=== PATIENT | female | born 1955 | race Caucasian/White ===

== ENCOUNTER 2017-01-15 00:37 | Emergency (ER) | payer MEDICARE ==
--- NOTE | ~2017-01-15 | ER ---
PATIENT'S NAME: MARK ENGLE [facility] AGE: 61 Y [address] ROOM: [place] [address] LOCATION: ED ADMIT DATE: 01/15/2017 ER/Outpatient Report DISCHARGE DATE: 01/15/2017 FAMILY PHYSICIAN: Kia Blanca MD ATTENDING PHYSICIAN: Hardik Quinn Admission date and time documented in the medical record. I saw the patient at 0050 hours. CHIEF COMPLAINT: Left low back pain. HISTORY OF PRESENT ILLNESS: This patient is a 61-year-old female, brought to the emergency room by Paramedics via ambulance for evaluation. The patient has had pain in her left lower back today. Stiff and has muscle spasm. The patient was given fentanyl en-route. Denies any fall or trauma. No recent coughs, colds, flus, fever, chills, or sweats. No chest pain or shortness of breath. No abdominal pain, nausea, vomiting, or diarrhea. No urinary frequency, urgency, or dysuria. Other than the back, no other joint or muscle swelling, redness, or pain. No skin eruptions or rash. HOME MEDICATIONS: See attached medication list. ALLERGIES: SULFA AND NSAIDS. SOCIAL HISTORY: Nonsmoker and nondrinker. REVIEW OF SYSTEMS: All systems reviewed by me are negative with exception of those discussed in the history of present illness. PHYSICAL EXAMINATION: VITAL SIGNS: Temperature 98.5 tympanic, pulse 85, respirations 16, blood pressure 133/75, and O2 saturation on room air is 97%. LUNGS: Clear. HEART: Regular. ABDOMEN: Soft, nondistended, nontender. Good bowel tones. No organomegaly or abnormal mass palpable. The patient has tenderness of the left low back. PELVIS: Stable. Nontender. EXTREMITIES: Moves all 4 extremities. No peripheral edema, cyanosis, or deformity. PATIENT'S NAME: MARK ENGLE [facility] AGE: 61 Y [address] ROOM: [place] [address] LOCATION: ED ADMIT DATE: 01/15/2017 ER/Outpatient Report DISCHARGE DATE: 01/15/2017 FAMILY PHYSICIAN: Kia Blanca MD ATTENDING PHYSICIAN: Hardik Quinn NEUROVASCULAR: Intact. SKIN: Clear. IMPRESSION: Left low back pain, muscular etiology with some muscle spasm. PLAN: The patient was given Valium 4 mg IV in the emergency room, Solu-Medrol 125 mg IV in the emergency room. The patient was discharged home. Observation. Activity as tolerated. Valium 5 mg 3 times a day for a week. Medrol Dosepak, take as directed. Continue the [place] that she has at home, 1 to 2 every 4 to 6 hours as needed for pain. Continue home medications and care. Heat, ice, or combination to sore areas intermittently as needed. Follow up with personal physician as needed. Discussion ensued with the patient concerning my findings and recommendations, she understands. MD BRE SNYDER/modl /[id number] d: 01/17/17 0155 t: 01/17/17 1811, OUTPATIENT REPORT
== END 2017-01-15 02:35 | disposition disaster alternative care site (69) ==
LOC: GMED 00:37
DX: M62.830 Muscle spasm of back (principal); E66.9 Obesity, unspecified; Z88.2 Allergy status to sulfonamides; Z88.8 Allergy status to other drugs, medicaments and biological substances
CPT/HCPCS: J2930; J3010; J3360

== ENCOUNTER → 2017-01-15 | Outpatient (CLI) | payer MEDICARE | END | disposition disaster alternative care site (69) | LOC: GAMB 00:06 | DX: M54.5 Low back pain (principal); M62.830 Muscle spasm of back; Z79.01 Long term (current) use of anticoagulants; Z79.899 Other long term (current) drug therapy; Z88.2 Allergy status to sulfonamides; Z88.9 Allergy status to unspecified drugs, medicaments and biological substances; Z88.6 Allergy status to analgesic agent | CPT/HCPCS: A0425; A0427; J3010 ==